=== PATIENT | female | born 1970 | race Caucasian/White ===

== ENCOUNTER → 2016-11-16 | Outpatient (CLI) | payer BC ==
--- NOTE | 2016-11-16 16:10 | Diagnostic Imaging Report ---
INDICATION: Low back pain. EXAMINATION: Lumbar spine. FINDINGS: AP and lateral views of the lumbar spine show normal vertebral body height and alignment. There is disc space narrowing at L4-5. The disc spaces are well-maintained. There is slight scoliotic curvature of the lumbar spine, convex to the left. IMPRESSION: Scoliosis. Degenerative disc changes at L4-5. Nothing acute. Dictated by: Dictated on workstation # [id number]
--- NOTE | 2016-11-16 16:11 | Diagnostic Imaging Report ---
INDICATION: Back pain after a fall. FINDINGS: AP and lateral views of the thoracic spine show normal vertebral body height and alignment. The intervertebral disc spaces are well maintained. There is no fracture seen. IMPRESSION: Slight scoliotic curvature of the thoracic spine, convex to the right. No acute abnormality is seen. Dictated by: Dictated on workstation # [id number]
== END ==
LOC: RAD 14:32
PROVIDERS: ATTEND Family Medicine
DX: M41.24 Other idiopathic scoliosis, thoracic region (principal); M51.34 Other intervertebral disc degeneration, thoracic region
CPT/HCPCS: 72072; 72100

== ENCOUNTER → 2017-10-30 | Outpatient (CLI) | payer BC ==
[~2017-10-30] MED LIST: ACHD5005 PO; CATHETER FLUSH 10 ML SYR IV PRN; DOCU-143 PO; IBUP-1780 PO; MONT10TA21 PO
--- NOTE | 2017-10-30 16:12 | Diagnostic Imaging Report ---
INDICATION: Right upper quadrant abdominal pain. TECHNIQUE: The patient was administered 4.8 mCi of technetium 99m Choletec intravenously and imaging over the abdomen was performed. After 60 minutes, the patient ingested one can of Ensure and the gallbladder ejection fraction was calculated. FINDINGS: There is homogeneous uptake of activity by the liver. Prompt excretion of activity into the common duct and gallbladder is seen. There is normal passage of activity into the small bowel. There is a small amount of activity in the left upper quadrant, likely within the stomach, suggestive of mild reflux. The gallbladder ejection fraction is abnormally low at 9%. Normal values are 35% or greater. IMPRESSION: 1. No evidence of cystic duct or common bile duct obstruction. 2. Mild reflux. 3. Low gallbladder ejection fraction of 9%. Dictated by: Dictated on workstation # [id number]
== END ==
LOC: CARD 09:55
PROVIDERS: ATTEND Nurse Practitioner Family
DX: R10.11 Right upper quadrant pain (principal); K82.8 Other specified diseases of gallbladder
CPT/HCPCS: 78227

== ENCOUNTER 2017-11-01 05:34 | Outpatient (CLI) | payer BC ==
[~2017-11-01] VITALS: Ht 157.5 cm; Wt 129.7 kg
[2017-11-01] MEDS ORDERED: IBUP-1780 PO (09:42)
[2017-11-01] MEDS ORDERED: MONT10TA21 PO (09:42)
[2017-11-02] MEDS ORDERED: ACHD5005 PO (12:34)
[2017-11-02] MEDS ORDERED: DOCU-143 PO (12:34)
== END 2017-11-01 10:07 | disposition home or self-care (01) ==
LOC: PREOP 05:34
PROVIDERS: ATTEND Surgery
DX: Z01.818 Encounter for other preprocedural examination (principal)

== ENCOUNTER 2017-11-02 09:33 | Day surgery (SDC) | payer BC ==
[~2017-11-02] VITALS: Ht 157.5 cm; Wt 129.7 kg
[~2017-11-02 09:33] MED LIST changes: -ACHD5005 PO; -CATHETER FLUSH 10 ML SYR IV PRN; -DOCU-143 PO
[2017-11-02] MEDS ORDERED: LACTATED RINGERS 1,000 ML IV PRN ×2 (09:43→12:07)
[2017-11-02 09:45] VITALS: BP 135/73
[2017-11-02] MEDS ORDERED: CLINDAMYCIN 600 MG/50 ML IVPB 50 ML IV ONE (09:45)
[2017-11-02] MEDS ORDERED: FAMOTIDINE 20MG/2ML IV (PEPCID) IV ONE (10:00)
[2017-11-02] MEDS ORDERED: SCOPOLAMINE 1.5 MG (TRANSDERM-SCOP) PATCH TOP ONE (10:00)
[2017-11-02] MEDS ORDERED: ONDANSETRON 4 MG/2 ML (SDV) Z0FRAN IV ONE (10:00)
[2017-11-02 10:25] LABS: BASOPHILS % (AUTO) 0 % (0-10); EOSINOPHILS # (AUTO) 0.1 10^3/uL (0.0-0.3); EOSINOPHILS % (AUTO) 1 % (0-10); HEMATOCRIT 41 % (35-52); LYMPHOCYTES % (AUTO) 15 % (12-44); MEAN CORPUSCULAR HEMOGLOBIN 30 PG (25-34); MEAN CORPUSCULAR HGB CONC 34 G/DL (32-36); MEAN CORPUSCULAR VOLUME 87 FL (80-99); MEAN PLATELET VOLUME 12.1 FL (7.4-10.4); MONOCYTES # (AUTO) 0.5 X 10^3 (0.0-1.0); MONOCYTES % (AUTO) 8 % (0-12); NEUTROPHILS # (AUTO) 5.1 X 10^3 (1.8-7.8); NEUTROPHILS % (AUTO) 75 % (42-75); PLATELET COUNT 237 10^3/uL (130-400); RED BLOOD COUNT 4.68 10^6/uL (4.35-5.85); RED CELL DISTRIBUTION WIDTH 14.8 % (10.0-14.5); WHITE BLOOD COUNT 6.8 10^3/uL (4.3-11.0)
--- NOTE | 2017-11-02 10:34 | Progress Note-Pre Operative ---
Pre-Operative Progress Note H&P Reviewed The H&P was reviewed, patient examined and no changes noted. Date Seen by Provider: Nov 02, 2017 Time Seen by Provider: 10:33 Date H&P Reviewed: Nov 02, 2017 Time H&P Reviewed: 10:33 Pre-Operative Diagnosis: ruq abdominal pain, biliary dyskinesia ALBERT STONE DO Nov 02, 2017 10:34
[2017-11-02] MEDS ORDERED: BUPIVACAINE 0.5% 30 ML (SENSORCAINE) VIAL ONE (10:41)
[2017-11-02] MEDS ORDERED: LIDOCAINE PF 2% 5 ML (XYLOCAINE) VIAL ONE (10:42)
[2017-11-02] MEDS ORDERED: ROCURONIUM 10 MG/ML 5 ML SYRINGE IV ONE (10:42)
[2017-11-02] MEDS ORDERED: LIDOCAINE 1% INJ 20 ML 20 ML VIAL ONE (10:42)
[2017-11-02] MEDS ORDERED: ONDANSETRON 4 MG/2 ML (SDV) Z0FRAN ONE ×2 (10:42→13:03)
[2017-11-02] MEDS ORDERED: proPOfol 200 MG/20 ML (DIPRIVAN) VIAL IV ONE (10:42)
[2017-11-02] MEDS ORDERED: DEXAMETHASONE 10 MG/ML (DECADRON) 1 ML VIAL ONE (10:43)
[2017-11-02] MEDS ORDERED: MIDAZOLAM 2 MG/2 ML (VERSED) VIAL ONE (10:43)
[2017-11-02] MEDS ORDERED: fentaNYL INJECTION 100 MCG/2 ML AMP ONE (10:43)
[2017-11-02] MEDS ORDERED: SEVOFLURANE (ULTANE) 15 ML INHAL SOLN ONE (10:47)
--- NOTE | 2017-11-02 12:33 | Progress Note-Post Operative ---
Post-Operative Progess Note Surgeon (s)/Nursing Informatics Specialist (s) Surgeon ALBERT STONE DO Nursing Informatics Specialist: Dr. Rodrigues Pre-Operative Diagnosis ruq abdominal pain, biliary dyskinesia Post-Operative Diagnosis same Procedure & Operative Findings Date of Procedure 11/02/17 Procedure Performed/Findings lap pasha c ioc Anesthesia Type gen Estimated Blood Loss Estimated blood loss (mL): min Specimens/Packing Specimens Removed gallbladder ALBERT STONE DO Nov 02, 2017 12:33
[2017-11-02] MEDS ORDERED: ACHD5005 PO (12:34)
[2017-11-02] MEDS ORDERED: DOCU-143 PO (12:34)
--- NOTE | 2017-11-02 12:36 | Discharge Inst-Simple/Standard ---
Discharge Inst-Standard Discharge Medications New, Converted or Re-Newed RX: RX on Chart Patient Instructions/Follow Up Plan of Care/Instructions/FU: 2-3 weeks Maggie Activity as Tolerated: No Discharge Diet: Regular Diet Other Inst to Patient Follow up Appt: Make appointment for 2 weeks. Instructions: No lifting greater than 10 pounds. No strenuous activity. May shower in 24 hours, no tub bath or soaking. Use incentive spirometer at home as directed. No Smoking Skin/Wound Care: May remove bandages. You need to leave the white strips over incision on they will fall off on their own. Symptoms to Report: Appetite Changes, Extremity Discoloration, Numbness/Tingling, Swelling Increased , Bleeding Excessive, Eyesight Changes, Pain Increased, Urine Color Change, Constipation(Persistent), Fever over 101 degree F, Pain/Pressure in chest, Urinating Difficulty, Cough Up/Vomit Blood, Heart Beat Irreg/Pounding, Pain/ Pressure in jaw, Vaginal Bleeding Increase, Cramps in feet or legs, Lightheadedness, Pain/Pressure in shoulder, Diarrhea(Persistent), Memory Changes Suddenly, Questions/Concerns, Weight gain consecutive days, Dizziness/ Fainting, Nausea/Vomiting, Shortness of Breath, Weight gain over 2 pounds. If eyes or skin turn yellow notify physician. If questions or concerns contact your physician Or seek help at emergency department. ALBERT STONE DO Nov 02, 2017 12:36
[2017-11-02] MEDS ORDERED: fentaNYL INJECTION 100 MCG/2 ML AMP IVP PRN (13:00)
[2017-11-02] MEDS ORDERED: morphine INJ 10 MG/ML 1ML (SYR OR VIAL) ONE (13:03)
[2017-11-02] MEDS: morphine INJ 10 MG/ML 1ML (SYR OR VIAL) IVP PRN ×2 (13:05→13:10)
[2017-11-02] MEDS ORDERED: ONDANSETRON 4 MG/2 ML (SDV) Z0FRAN IVP PRN (13:15)
[2017-11-02 13:40] VITALS: BP 137/78
--- NOTE | 2017-11-02 14:09 | Anesthesia-General Post-Op ---
General Patient Condition Mental Status/LOC: Same as Preop Cardiovascular: Satisfactory Nausea/Vomiting: Absent Respiratory: Satisfactory Pain: Controlled Complications: Absent Post Op Complications Complications None Follow Up Care/Instructions Patient Instructions None needed. Anesthesia/Patient Condition Patient Condition Patient is doing well, no complaints, stable vital signs, no apparent adverse anesthesia problems. No complications reported per nursing. D/C home per [facility] Criteria: Yes YVONNE STEWART CRNA Nov 02, 2017 14:09
[2017-11-02 14:10] VITALS: BP 122/70
[2017-11-02 14:40] VITALS: BP 139/73
[2017-11-02 15:00] VITALS: BP 139/73
--- NOTE | 2017-11-02 19:26 | Diagnostic Imaging Report ---
INDICATION: Abnormal gallbladder ejection fraction. Patient is undergoing cholecystectomy. EXAMINATION: Fluoroscopy was provided in the OR during performance of an intraoperative cholangiogram and cholecystectomy. FLUOROSCOPY TIME: Total of 7 seconds of fluoroscopy was utilized. FINDINGS: Images demonstrate contrast being injected via the cystic duct remnant. Intrahepatic and extrahepatic bile ducts are normal caliber. No filling defects are seen to suggest retained stone. Contrast flows into the duodenum. IMPRESSION: Fluoroscopy for intraoperative cholangiogram. Dictated by: Dictated on workstation # [id number]
--- NOTE | 2017-11-02 22:19 | OPERATIVE REPORT ---
DATE OF SERVICE: 11/02/2017 PREOPERATIVE DIAGNOSIS: Biliary dyskinesia. POSTOPERATIVE DIAGNOSIS: Biliary dyskinesia. PROCEDURE: Laparoscopic cholecystectomy with intraoperative cholangiogram. SURGEON: Conrado Serrano DO NUT SIFTER: Aaron Rodrigues DO, assisted in retraction, dissection and closure. ANESTHESIA: General. ESTIMATED BLOOD LOSS: Minimal. COMPLICATIONS: None. INDICATIONS: The patient is a 47-year-old female who had ejection fraction approximately 9% and symptoms consistent with biliary dyskinesia. She understands risks and benefits of the procedure and wished to proceed with procedure. Consent was signed on the chart. DESCRIPTION OF PROCEDURE: The patient was taken to the operating suite. She was prepped and draped in sterile fashion. Surgical pause was performed. Local anesthetic was infiltrated just above the umbilicus. An 11 blade scalpel was used to make an incision and cautery and was taken down to the fascia, which was scored, elevated and the abdomen was then entered. A 0 Vicryl was placed in a suyzvp-jj-fappw fashion for closure at the end of the case. A balloon trocar was inserted in the abdomen and pneumoperitoneum was achieved. Under direct visualization of the laparoscope, a 5 mm trocar was placed in subxiphoid region and two 5 mm trocars were placed in the right upper quadrant. Omentum was adhered up to the gallbladder. This was then taken down. The cystic duct and cystic artery were then dissected out. Clips were placed on the proximal and distal portion of the cystic artery. A clip was placed on the distal portion of the cystic duct. The duct was then partially transected. Arrow catheter was inserted into the duct and cholangiogram was performed. There were no filling defects. Contrast made its way into the duodenum. The catheter was then removed. Clips were placed on the proximal portion of the cystic duct and the duct and artery were then completely transected. Hook cautery used to dissect the gallbladder from the gallbladder fossa achieving hemostasis. Once removed, it was placed in an Endobag and removed through the 12 mm trocar site. The abdomen was reinspected, irrigated and suctioned again noting hemostasis. The 0 Vicryl placed in a nodrzm-jh-hvxka fashion previously was then closed closing the 12 mm fascial defect. The trocars were removed. The skin was then closed using 4-0 Monocryl in a subcuticular fashion. The area was then washed and dried and Skin Affix was placed over the incisions. The patient tolerated the procedure well without any complications. She was taken to the recovery room in stable condition. Job ID: [id number] DocumentID: [id number] Dictated Date: 11/02/2017 14:08:58 Mold Shaker Date: 11/02/2017 22:18:38 Dictated By: DO ROSITA NAIK
== END 2017-11-02 15:10 | disposition home or self-care (01) ==
LOC: SDC 09:33
PROVIDERS: ATTEND Surgery
DX: K81.1 Chronic cholecystitis (principal); E66.01 Morbid (severe) obesity due to excess calories; Z68.43 Body mass index [BMI] 50.0-59.9, adult
CPT/HCPCS: 36415; 84703; 85025; 87081; 94664

== ENCOUNTER → 2018-01-24 | Outpatient (CLI) | payer BC ==
[~2018-01-24] MED LIST changes: +ACHD5005 PO; +DOCU-143 PO
== END ==
LOC: RAD 15:07
PROVIDERS: ATTEND Physician Assistant
DX: G89.29 Other chronic pain (principal); M54.5 Low back pain; M54.6 Pain in thoracic spine; Z53.8 Procedure and treatment not carried out for other reasons

== ENCOUNTER → 2018-05-18 | Outpatient (CLI) | payer BC, OTHER ==
--- NOTE | 2018-05-18 17:26 | Diagnostic Imaging Report ---
INDICATION: Routine screening. COMPARISON: Prior exam from 11/09/2015 and 02/06/2012. FINDINGS: 2D and 3D bilateral screening mammography was performed with CAD. The current study was also evaluated with a Computer Aided Detection (CAD) system. FINDINGS: Both breasts remain heterogeneously dense, limiting the sensitivity of mammography. The parenchymal pattern is stable. No mass or malignant appearing microcalcifications are seen. The axillae are unremarkable. IMPRESSION: No mammographic features suspicious for malignancy are identified. ACR BI-RADS Category 1: Negative. Result letter will be mailed to the patient. Note: At least 10% of breast cancer is not imaged by mammography. Dictated on workstation # [id number]
== END ==
LOC: RAD 08:44
PROVIDERS: ATTEND Obstetrics & Gynecology
DX: Z12.31 Encounter for screening mammogram for malignant neoplasm of breast (principal)
CPT/HCPCS: 77067

== ENCOUNTER 2018-08-13 09:30 | Outpatient (CLI) | payer OTHER ==
[~2018-08-13] VITALS: Ht 157.5 cm; Wt 133.4 kg
== END 2018-08-13 10:21 | disposition home or self-care (01) ==
LOC: PREOP 09:30
PROVIDERS: ATTEND Surgery
DX: Z01.818 Encounter for other preprocedural examination (principal)

== ENCOUNTER 2018-08-14 12:50 | Day surgery (SDC) | payer OTHER ==
[~2018-08-14] VITALS: Ht 157.5 cm; Wt 133.4 kg
[2018-08-14] MEDS ORDERED: LACTATED RINGERS 1,000 ML IV ONE (12:52)
--- OUTSIDE RECORDS SUMMARY | 2018-08-14 12:54 | XMS REPORT | Continuity of Care Document ---
Author Organization Unknown Address Unknown Allergies Active Description Code Type Severity Reaction Onset Reported/Identified Relationship to Patient Clinical Status Yes MONISTAT 7 CREAM, APPL, WIPES MILD DERMATOLOGICAL - ALESSANDRO Yes PENICILLINS UNKNOWN UNKNOWN Yes TRAMADOL UNKNOWN GI PROBLEMS - NAUSEA Yes Penicillins [id number] Drug Allergy Unknown N/A 10/30/2017 Yes Penicillins [id number] Drug Allergy Mild RASH 11/01/2017 Yes miconazole [id number] Drug Allergy Unknown N/A 08/13/2018 Yes skin cleanser combination no.17 [id number] Drug Allergy Unknown N/A 2018 Yes tramadol [id number] Drug Allergy Unknown N/A 08/13/2018 Medications There is no data. Problems Date Dx Coded Attending Type Code Diagnosis Diagnosed By 08/19/2015 Ot V76.12 OTH SCREEN MAMMO-MALIGN NEOPLASM OF MICHI 08/19/2015 Ot V76.12 OTH SCREEN MAMMO-MALIGN NEOPLASM OF MICHI 08/21/2015 ABRAM PHILLIPS MD Ot M25.571 PAIN IN RIGHT ANKLE AND JOINTS OF RIGHT 09/17/2015 ABRAM PHILLIPS MD Ot M25.571 PAIN IN RIGHT ANKLE AND JOINTS OF RIGHT 11/10/2015 BARBER NAVARRO MD Ot Z12.31 ENCNTR SCREEN MAMMOGRAM FOR MALIGNANT NE 11/25/2015 BARBER NAVARRO MD Ot Z12.31 ENCNTR SCREEN MAMMOGRAM FOR MALIGNANT NE 11/16/2016 Ot V76.12 OTH SCREEN MAMMO-MALIGN NEOPLASM OF MICHI 11/16/2016 ABRAM PHILLIPS MD Ot M25.571 PAIN IN RIGHT ANKLE AND JOINTS OF RIGHT 11/16/2016 BARBER NAVARRO MD Ot Z12.31 ENCNTR SCREEN MAMMOGRAM FOR MALIGNANT NE 11/17/2016 ABRAM PHILLIPS MD Ot M41.24 OTHER IDIOPATHIC SCOLIOSIS, THORACIC REG 11/17/2016 JACQUELINE DOMINGUEZ, ABRAM L Ot M51.34 OTHER INTERVERTEBRAL DISC DEGENERATION, 11/30/2016 ABRAM PHILLIPS MD Ot M41.24 OTHER IDIOPATHIC SCOLIOSIS, THORACIC REG 11/30/2016 ABRAM PHILLIPS MD Ot M51.34 OTHER INTERVERTEBRAL DISC DEGENERATION, 12/30/2016 ABRAM PHILLIPS MD Ot M41.24 OTHER IDIOPATHIC SCOLIOSIS, THORACIC REG 12/30/2016 ABRAM PHILLIPS MD Ot M51.34 OTHER INTERVERTEBRAL DISC DEGENERATION, 12/30/2016 ABRAM PHILLIPS MD Ot M41.24 OTHER IDIOPATHIC SCOLIOSIS, THORACIC REG 12/30/2016 ABRAM PHILLIPS MD Ot M51.34 OTHER INTERVERTEBRAL DISC DEGENERATION, 12/30/2016 Ot V76.12 OTH SCREEN MAMMO-MALIGN NEOPLASM OF MICHI 12/30/2016 ABRAM PHILLIPS MD Ot M25.571 PAIN IN RIGHT ANKLE AND JOINTS OF RIGHT 12/30/2016 RAMON DOMINGUEZ, BABRER N Ot Z12.31 ENCNTR SCREEN MAMMOGRAM FOR MALIGNANT NE 12/30/2016 ABRAM PHILLIPS MD L Ot M41.24 OTHER IDIOPATHIC SCOLIOSIS, THORACIC REG 12/30/2016 ABRAM PHILLIPS MD Ot M51.34 OTHER INTERVERTEBRAL DISC DEGENERATION, 01/05/2017 ABRAM PHILLIPS MD L Ot M41.24 OTHER IDIOPATHIC SCOLIOSIS, THORACIC REG 01/05/2017 ABRAM PHILLIPS MD Ot M51.34 OTHER INTERVERTEBRAL DISC DEGENERATION, 02/16/2017 BARAM PHILLIPS MD Ot M41.24 OTHER IDIOPATHIC SCOLIOSIS, THORACIC REG 02/16/2017 ABRAM PHILLIPS MD Ot M51.34 OTHER INTERVERTEBRAL DISC DEGENERATION, 07/06/2017 ABRAM PHILLIPS V70.0 ROUTINE GENERAL MEDICAL EXAMINATION AT A HEALTH CARE FACILITY 07/06/2017 ABRAM PHILLIPS Z00.01 ENCOUNTER FOR GENERAL ADULT MEDICAL EXAMINATION WITH ABNORMAL FINDINGS 07/06/2017 ABRAM PHILLIPS V70.0 ROUTINE GENERAL MEDICAL EXAMINATION AT A HEALTH CARE FACILITY 07/06/2017 ABRAM PHILLIPS Z00.01 ENCOUNTER FOR GENERAL ADULT MEDICAL EXAMINATION WITH ABNORMAL FINDINGS 07/06/2017 ABRAM PHILLIPS V70.0 ROUTINE GENERAL MEDICAL EXAMINATION AT A HEALTH CARE FACILITY 07/06/2017 ABRAM PHILLIPS Z00.01 ENCOUNTER FOR GENERAL ADULT MEDICAL EXAMINATION WITH ABNORMAL FINDINGS 10/13/2017 ColindresChristine W 789.09 ABDOMINAL PAIN, OTHER SPECIFIED SITE 10/13/2017 Christine Colindres W R10.10 UPPER ABDOMINAL PAIN, UNSPECIFIED 10/16/2017 Christine Colindres W 789.09 ABDOMINAL PAIN, OTHER SPECIFIED SITE 10/16/2017 Christine Colindres W R10.10 UPPER ABDOMINAL PAIN, UNSPECIFIED 10/16/2017 Christine Colindres W 789.09 ABDOMINAL PAIN, OTHER SPECIFIED SITE 10/16/2017 Christine Colindres W R10.10 UPPER ABDOMINAL PAIN, UNSPECIFIED 11/01/2017 STONE DO ALBERT D Ot Z01.818 ENCOUNTER FOR OTHER PREPROCEDURAL EXAMIN 11/01/2017 ELISEO COLINDRES LIQUID COMPOUNDER Ot K82.8 OTHER SPECIFIED DISEASES OF GALLBLADDER 11/01/2017 ELISEO COLINDRES LIQUID COMPOUNDER Ot R10.11 RIGHT UPPER QUADRANT PAIN 11/01/2017 STONE DO, ALBERT D Ot Z01.818 ENCOUNTER FOR OTHER PREPROCEDURAL EXAMIN 11/02/2017 STONE DO, ALBERT D Ot E66.01 MORBID (SEVERE) OBESITY DUE TO EXCESS CA 11/02/2017 STONE DO, ABLERT D Ot K81.1 CHRONIC CHOLECYSTITIS 11/02/2017 STONE DO, ALBERT D Ot Z68.43 BODY MASS INDEX (BMI) 50-59.9 , ADULT 11/08/2017 STONE DO, ALBERT D Ot E66.01 MORBID (SEVERE) OBESITY DUE TO EXCESS CA 11/08/2017 STONE DO, ALBERT D Ot K81.1 CHRONIC CHOLECYSTITIS 11/08/2017 STONE DO, ALBERT D Ot Z68.43 BODY MASS INDEX (BMI) 50-59.9 , ADULT 11/15/2017 ELISEO COLINDRES LIQUID COMPOUNDER Ot K82.8 OTHER SPECIFIED DISEASES OF GALLBLADDER 11/15/2017 ELISEO COLINDRES LIQUID COMPOUNDER Ot R10.11 RIGHT UPPER QUADRANT PAIN 01/22/2018 JACQUELINE DOMINGUEZ, ABRAM Judge Ot M25.571 PAIN IN RIGHT ANKLE AND JOINTS OF RIGHT 01/22/2018 RAMON DOMINGUEZ, BARBER Silver Ot Z12.31 ENCNTR SCREEN MAMMOGRAM FOR MALIGNANT NE 01/22/2018 ABRAM PHILLIPS MD, Ot M41.24 OTHER IDIOPATHIC SCOLIOSIS, THORACIC REG 01/22/2018 JACQUELINE DOMINGUEZ, ABRAM Judge Ot M51.34 OTHER INTERVERTEBRAL DISC DEGENERATION, 01/22/2018 ELISEO COLINDRES LIQUID COMPOUNDER Ot K82.8 OTHER SPECIFIED DISEASES OF GALLBLADDER 01/22/2018 ELISEO COLINDRES LIQUID COMPOUNDER Ot R10.11 RIGHT UPPER QUADRANT PAIN 01/25/2018 VOGT DEBORAH PATINO Ot G89.29 OTHER CHRONIC PAIN 01/25/2018 VOGT DEBORAH PATINO Ot M54.5 LOW BACK PAIN 01/25/2018 VOGT DEBORAH PATINO L Ot M54.6 PAIN IN THORACIC SPINE 01/25/2018 VOGT DEBORAH PATINO Ot Z53.8 PROCEDURE AND TREATMENT NOT CARRIED OUT 01/25/2018 VOGT DEBORAH PATINO Ot G89.29 OTHER CHRONIC PAIN 01/25/2018 VOGT DEBORAH PATINO Ot M54.5 LOW BACK PAIN 01/25/2018 VOGT DEBORAH PATINO Ot M54.6 PAIN IN THORACIC SPINE 01/25/2018 VOGT DEBORAH PATINO Ot Z53.8 PROCEDURE AND TREATMENT NOT CARRIED OUT 05/10/2018 ABRAM PHILLIPS 626.0 ABSENCE OF MENSTRUATION 05/10/2018 ABRAM PHILLIPS 782.62 FLUSHING 05/10/2018 ABRAM PHILLIPS 783.1 ABNORMAL WEIGHT GAIN 05/10/2018 ABRAM PHILLIPS N91.1 SECONDARY AMENORRHEA 05/10/2018 ABRAM PHILLIPS R23.2 FLUSHING 05/10/2018 ABRAM PHILLIPS R63.5 ABNORMAL WEIGHT GAIN 05/10/2018 ABRAM PHILLIPS 626.0 ABSENCE OF MENSTRUATION 05/10/2018 ABRAM PHILLIPS 782.62 FLUSHING 05/10/2018 ABRAM PHILLIPS 783.1 ABNORMAL WEIGHT GAIN 05/10/2018 ABRAM PHILLIPS N91.1 SECONDARY AMENORRHEA 05/10/2018 ABRAM PHILLIPS R23.2 FLUSHING 05/10/2018 ABRAM PHILLIPS R63.5 ABNORMAL WEIGHT GAIN 05/17/2018 JACQUELINE DOMINGUEZ, ABRAM Judge Ot M25.571 PAIN IN RIGHT ANKLE AND JOINTS OF RIGHT 05/17/2018 RAMON DOMINGUEZ, BARBER Silver Ot Z12.31 ENCNTR SCREEN MAMMOGRAM FOR MALIGNANT NE 05/17/2018 ABRAM PHILLIPS MD Ot M41.24 OTHER IDIOPATHIC SCOLIOSIS, THORACIC REG 05/17/2018 ABRAM PHILLIPS MD Ot M51.34 OTHER INTERVERTEBRAL DISC DEGENERATION, 05/17/2018 ELISEO COLINDRES LIQUID COMPOUNDER Ot K82.8 OTHER SPECIFIED DISEASES OF GALLBLADDER 05/17/2018 ELISEO COLINDRES LIQUID COMPOUNDER Ot R10.11 RIGHT UPPER QUADRANT PAIN 05/17/2018 VOGT DEBORAH PATINO Ot G89.29 OTHER CHRONIC PAIN 05/17/2018 VOGT DEBORAH PATINO Ot M54.5 LOW BACK PAIN 05/17/2018 VOGT DEBORAH PATINO Ot M54.6 PAIN IN THORACIC SPINE 05/17/2018 VOGT DEBORAH PATINO Ot Z53.8 PROCEDURE AND TREATMENT NOT CARRIED OUT 05/18/2018 ABRAM PHILLIPS MD Ot M25.571 PAIN IN RIGHT ANKLE AND JOINTS OF RIGHT 05/18/2018 BARBER NAVARRO MD Ot Z12.31 ENCNTR SCREEN MAMMOGRAM FOR MALIGNANT NE 05/18/2018 ABRAM PHILLIPS MD Ot M41.24 OTHER IDIOPATHIC SCOLIOSIS, THORACIC REG 05/18/2018 ABRAM PHILLIPS MD Ot M51.34 OTHER INTERVERTEBRAL DISC DEGENERATION, 05/18/2018 ELISEO COLINDRES LIQUID COMPOUNDER Ot K82.8 OTHER SPECIFIED DISEASES OF GALLBLADDER 05/18/2018 ELISEO COLINDRES LIQUID COMPOUNDER Ot R10.11 RIGHT UPPER QUADRANT PAIN 05/18/2018 DEBORAH ARREDONDO Ot G89.29 OTHER CHRONIC PAIN 05/18/2018 VODEBORAH COX Ot M54.5 LOW BACK PAIN 05/18/2018 DEBORAH ARREDONDO Ot M54.6 PAIN IN THORACIC SPINE 05/18/2018 DEBORAH ARREDONDO Ot Z53.8 PROCEDURE AND TREATMENT NOT CARRIED OUT 08/08/2018 ALBERT STONE DO Ot Z01.818 ENCOUNTER FOR OTHER PREPROCEDURAL EXAMIN 08/10/2018 ABRAM PHILLIPS MD Ot M25.571 PAIN IN RIGHT ANKLE AND JOINTS OF RIGHT 08/10/2018 BARBER NAVARRO MD Ot Z12.31 ENCNTR SCREEN MAMMOGRAM FOR MALIGNANT NE 08/10/2018 ABRAM PHILLIPS MD Ot M41.24 OTHER IDIOPATHIC SCOLIOSIS, THORACIC REG 08/10/2018 JACQUELINE DOMINGUEZ, ABRAM Judge Ot M51.34 OTHER INTERVERTEBRAL DISC DEGENERATION, 08/10/2018 ELISEO COLINDRES Ot K82.8 OTHER SPECIFIED DISEASES OF GALLBLADDER 08/10/2018 ELISEO COLINDRES Ot R10.11 RIGHT UPPER QUADRANT PAIN 08/10/2018 DEBORAH ARREDONDO Ot G89.29 OTHER CHRONIC PAIN 08/10/2018 DEBORAH ARREDONDO Ot M54.5 LOW BACK PAIN 08/10/2018 DEBORAH ARREDONDO Ot M54.6 PAIN IN THORACIC SPINE 08/10/2018 DEBORAH ARREDONDO Ot Z53.8 PROCEDURE AND TREATMENT NOT CARRIED OUT 08/10/2018 MARQUISE TALBOT DO Ot Z12.31 ENCNTR SCREEN MAMMOGRAM FOR MALIGNANT NE 08/10/2018 ALBERT STONE DO Ot Z01.818 ENCOUNTER FOR OTHER PREPROCEDURAL EXAMIN 08/13/2018 ALBERT STONE DO Ot Z01.818 ENCOUNTER FOR OTHER PREPROCEDURAL EXAMIN Procedures There is no data. Results Test Result Range Urine Culture - 03/31/17 14:31 PRELIM CULTURE RESULTS >100,000 Gram Negative STEVE / ID to Follow MEDIA PLATED Setup at 14:45 on 03/31/2017 CULTURE SOURCE void Sensi - 03/31/17 14:31 FINAL CULTURE RESULTS Escherichia coli (Isolate 1) Ampicillin/Sulbactam <=8/4 Ampicillin <=8 Amoxicillin/K Clavulanate <=8/4 Ceftriaxone <=8 Ciprofloxacin <=1 Nitrofurantoin <=32 Gentamicin <=4 Levofloxacin <=2 Trimethoprim/ Sulfamethoxazole <=2/38 Tetracycline <=4 Amikacin <=16 Aztreonam <=8 Ceftazidime <=1 Ceftazidime/K Clavulanate <=0.25 Cephalothin <=8 Cefotaxime <=2 Cefotaxime/K Clavulanate <=0.5 Cefoxitin <=8 Cefazolin <=8 Cefepime <=8 Cefuroxime <=4 Ertapenem <=1 Imipenem <=4 Meropenem <=4 Piperacillin/Tazobactam <=16 Piperacillin <=16 Tigecycline <=2 Tobramycin <=4 Lipid Panel - 07/06/17 14:27 C/HDL 3.3 3.7-6.7 Cholesterol 147 mg/dL 100-240 HDL 45 mg/dL 30-85 LDL-Calculated 69 mg/dL 0-100 Trig 166 mg/dL 35-160 VLDL 33 mg/dL 0-42 Nicotine and Metabolite, Quant - 07/06/17 14:27 NICOTINE NONE DETECTED NG/ML COTININE NONE DETECTED NG/ML CBC with Auto Diff - 10/13/17 10:30 Baso% 0.20 % 0.00-2.50 Eos 0.1 K/uL 0.0-0.7 Eos% 1.2 % 0.0-7.0 Hct 43.3 % 36.0-46.0 Hgb 14.1 g/dL 13.0-15.0 Lym 1.30 K/uL 0.60-3.40 Lym% 15.4 % 10.0-50.0 MCH 29.1 pg 27.0-31.0 MCHC 32.6 g/dL 32.0-36.0 MCV 89.5 fL 80.0-97.0 [place]% 6.8 % 0.0-12.0 MPV 12.9 fL 7.4-10.0 Cecilia% 76.4 % 37.0-80.0 Plt 265 K/uL 150-400 RBC 4.84 M/uL 3.60-5.00 RDW 14.5 % 11.6-14.8 WBC 8.43 K/uL 5.00-10.00 Cecilia 6.44 K/uL 2.00-6.90 [place] 0.6 K/uL 0.0-0.9 Baso 0.0 K/uL 0.0-0.2 Urine beta human chorionic gonadotropin (hCG) measurement - 11/02/17 09:40 Urine beta human chorionic gonadotropin (hCG) measurement NEGATIVE NEGATIVE Methicillin resistant Staphylococcus aureus (MRSA) screening culture - 09:50 Methicillin resistant Staphylococcus aureus (MRSA) screening culture NEG NRG Complete blood count (CBC) with automated white blood cell (WBC) differential - 11/02/17 10:15 Blood leukocytes automated count (number/volume) 6.8 10*3/uL 4.3-11.0 Blood erythrocytes automated count (number/volume) 4.68 10*6/uL 4.35-5.85 Venous blood hemoglobin measurement (mass/volume) 14.0 g/dL 11.5-16.0 Blood hematocrit (volume fraction) 41 % 35-52 Automated erythrocyte mean corpuscular volume 87 [foz_us] 80-99 Automated erythrocyte mean corpuscular hemoglobin (mass per erythrocyte) 30 pg 25-34 Automated erythrocyte mean corpuscular hemoglobin concentration measurement ( mass/volume) 34 g/dL 32-36 Automated erythrocyte distribution width ratio 14.8 % 10.0-14.5 Automated blood platelet count (count/volume) 237 10*3/uL 130-400 Automated blood platelet mean volume measurement 12.1 [foz_us] 7.4-10.4 Automated blood neutrophils/100 leukocytes 75 % 42-75 Automated blood lymphocytes/100 leukocytes 15 % 12-44 Blood monocytes/100 leukocytes 8 % 0-12 Automated blood eosinophils/100 leukocytes 1 % 0-10 Automated blood basophils/100 leukocytes 0 % 0-10 Blood neutrophils automated count (number/volume) 5.1 10*3 1.8-7.8 Blood lymphocytes automated count (number/volume) 1.0 10*3 1.0-4.0 Blood monocytes automated count (number/volume) 0.5 10*3 0.0-1.0 Automated eosinophil count 0.1 10*3/uL 0.0-0.3 Automated blood basophil count (count/volume) 0.0 10*3/uL 0.0-0.1 FSH and LH - 05/10/18 17:50 LH 27.8 mIU/mL FSH 26.3 mIU/mL Estradiol - 05/10/18 17:50 Estradiol 144.0 pg/mL Thyroid Stimulating Hormone - 05/10/18 17:50 TSH 1.17 mIU/mL 0.32-5.00 Estradiol - 05/10/18 17:50 Estradiol 144.0 PG/ML Encounters ACCT No. Visit Date/Time Discharge Status Pt. Type Provider Facility Loc./Unit Complaint [id number] 08/13/2018 09:30:00 08/13/2018 10:21:00 DIS Outpatient ALBERT STONE DO [facility] PREOP COLONOSCOPY [id number] 05/18/2018 08:44:00 05/18/2018 23:59:59 CLS Outpatient MARQUISE TALBOT DO [facility] RAD SCREENING [id number] 01/24/2018 15:07:00 01/24/2018 23:59:59 CLS Outpatient DEBORAH ARREDONDO [facility] RAD BACK PAIN [id number] 11/02/2017 09:33:00 11/02/2017 15:10:00 DIS Outpatient ALBERT STONE DO [facility] SDC BILIARY DYSKINESIA [id number] 11/01/2017 05:34:00 11/01/2017 10:07:00 DIS Outpatient ALBERT STONE DO [facility] PREOP BILIARY DYSKINESIA [id number] 10/30/2017 09:55:00 10/30/2017 23:59:59 CLS Outpatient ELISEO COLINDRES [facility] CARD RUQ ABD PAIN,SLUDGE SEEN ON GB SONOGRAM [id number] 11/16/2016 14:32:00 11/16/2016 23:59:59 CLS Outpatient ABRAM PHILLIPS MD [facility] RAD LOWER THORACIC PAIN [id number] 11/09/2015 10:26:00 11/09/2015 23:59:59 CLS Outpatient BARBER NAVARRO MD [facility] RAD SCREENING [id number] 08/19/2015 16:23:00 08/19/2015 23:59:59 CLS Outpatient ABRAM PHILLIPS MD [facility] RAD R ANKLE/FOOT PAIN [id number] 08/14/2018 12:40:00 PEN Preadmit ALBERT STONE DO [facility] ENDO BLOOD IN STOOL [id number] 02/06/2012 15:18:00 Document Registration [id number] 12/20/2010 08:15:00 Document Registration [id number] 05/15/2018 01:07:00 Document Registration [id number] 05/10/2018 17:50:00 05/10/2018 23:59:00 DIS Outpatient ABRAM PHILLIPS [id number] 10/16/2017 09:52:00 10/16/2017 23:59:00 DIS Outpatient Christine Colindres [id number] 10/13/2017 10:58:00 10/13/2017 23:59:00 DIS Outpatient Christine Colindres [id number] 07/06/2017 14:26:00 07/06/2017 23:59:00 DIS Outpatient ABRAM PHILLIPS [id number] 03/31/2017 14:31:00 03/31/2017 23:59:00 DIS Outpatient Christine Colindres
[2018-08-14] MEDS ORDERED: LACTATED RINGERS 1,000 ML IV STA (12:56)
[2018-08-14 13:14] VITALS: BP 127/81
--- NOTE | 2018-08-14 13:24 | Progress Note-Pre Operative ---
Pre-Operative Progress Note H&P Reviewed The H&P was reviewed, patient examined and no changes noted. Date Seen by Provider: Aug 14, 2018 Time Seen by Provider: 13:24 Date H&P Reviewed: Aug 14, 2018 Time H&P Reviewed: 13:24 Pre-Operative Diagnosis: blood in stool ALBERT STONE DO Aug 14, 2018 13:24
[2018-08-14] MEDS ORDERED: PROPOFOL INJECTION 50 ML IV ONE (13:50)
[2018-08-14] MEDS ORDERED: MIDAZOLAM 2 MG/2 ML (VERSED) VIAL ONE (13:50)
--- NOTE | 2018-08-14 15:19 | Progress Note-Post Operative ---
Post-Operative Progess Note Surgeon (s)/Ada Accommodation Consultant (s) Surgeon ALBERT STONE DO Ada Accommodation Consultant: na Pre-Operative Diagnosis blood in stool Post-Operative Diagnosis healing fisure Procedure & Operative Findings Date of Procedure 08/14/18 Procedure Performed/Findings colonoscopy Anesthesia Type per telephone exchange operator Estimated Blood Loss Estimated blood loss (mL): none Specimens/Packing Specimens Removed na ALBERT STONE DO Aug 14, 2018 15:19
--- NOTE | 2018-08-14 15:20 | Discharge Inst-Simple/Standard ---
Discharge Inst-Standard Patient Instructions/Follow Up Plan of Care/Instructions/FU: 2 weeks Maggie Activity as Tolerated: Yes Discharge Diet: Regular Diet (high fiber) ALBERT STONE DO Aug 14, 2018 15:20
[2018-08-14 15:25] VITALS: BP 105/65
[2018-08-14 15:55] VITALS: BP 125/81
[2018-08-14 16:10] VITALS: BP 125/81
--- NOTE | 2018-08-14 18:55 | Anesthesia-General Post-Op ---
MAC Patient Condition Mental Status/LOC: Same as Preop Cardiovascular: Satisfactory Nausea/Vomiting: Absent Respiratory: Satisfactory Pain: Controlled Complications: Absent Post Op Complications Complications None Follow Up Care/Instructions Patient Instructions None needed. Anesthesiology Discharge Order Discharge Order Patient is doing well, no complaints, stable vital signs, no apparent adverse anesthesia problems. No complications reported per nursing. TAMIKO MOTLEY CRNA Aug 14, 2018 18:55
--- NOTE | 2018-08-14 21:19 | OPERATIVE REPORT ---
DATE OF SERVICE: 08/14/2018 PREOPERATIVE DIAGNOSIS: Blood in stool. POSTOPERATIVE DIAGNOSIS: Healing fissure. PROCEDURE: Colonoscopy. SURGEON: Albert Serrano DO ANESTHESIA: Per BUSINESS TRANSFORMATION ANALYST. ESTIMATED BLOOD LOSS: None. COMPLICATIONS: None. INDICATIONS: The patient is a 48-year-old female who has been having some blood in stool. She was found to have a small fissure. The patient was discussed risks and benefits of procedure to evaluate for other sources of bleeding. She understands and wished to proceed. Consent was signed on the chart. DESCRIPTION OF PROCEDURE: The patient was taken to the endoscopy suite, placed in left lateral recumbent position. Timeout was performed. Digital rectal exam was performed. A small healing anterior fissure was present. No other polyps, masses or ulcerations present. Scope was inserted into the rectum and advanced all the way to the cecum with minimal difficulty. Prep was adequate. Scope was then slowly retracted back. There were no polyps, mass or ulceration in the cecum, ascending, transverse, descending and sigmoid colon. Once in the rectum, scope was retroflexed noting no other pathology. Scope was returned to its normal position, slowly withdrawn until completely removed. The patient tolerated procedure well without complications. She was taken to recovery room in stable condition. RECOMMENDATIONS: The patient will continue current medical therapy. We will reevaluate in 2 weeks. The patient will need repeat colonoscopy in 10 years unless family history of colon cancer, which would then be 5 years. Any issues before that will be seen at that time. Job ID: [id number] DocumentID: [id number] Dictated Date: 08/14/2018 15:24:35 Instruments Sales Representative Date: 08/14/2018 21:18:13 Dictated By: ALBERT SERRANO DO
== END 2018-08-14 16:10 | disposition home or self-care (01) ==
LOC: ENDO 12:50
PROVIDERS: ATTEND Surgery
DX: K60.2 Anal fissure, unspecified (principal); E66.01 Morbid (severe) obesity due to excess calories; Z68.43 Body mass index [BMI] 50.0-59.9, adult; K21.9 Gastro-esophageal reflux disease without esophagitis; F41.9 Anxiety disorder, unspecified; J45.909 Unspecified asthma, uncomplicated; Z77.22 Contact with and (suspected) exposure to environmental tobacco smoke (acute) (chronic); Z79.899 Other long term (current) drug therapy
CPT/HCPCS: 84703

== ENCOUNTER 2019-11-11 16:28 | Outpatient (CLI) | payer OTHER | END 2019-11-11 16:43 | disposition home or self-care (01) | LOC: SLEEP 16:28 | PROVIDERS: ATTEND Otolaryngology Otolaryngology/Facial Plastic Surgery | DX: G47.33 Obstructive sleep apnea (adult) (pediatric) (principal); G47.10 Hypersomnia, unspecified ==

== ENCOUNTER → 2020-06-26 | Outpatient (CLI) | payer BC ==
[2020-06-26 15:59] LABS: BASOPHILS % (AUTO) 1 % (0-10); EOSINOPHILS # (AUTO) 0.1 10^3/uL (0.0-0.3); EOSINOPHILS % (AUTO) 2 % (0-10); HEMATOCRIT 42 % (35-52); HEMOGLOBIN 13.3 g/dL (11.5-16.0); LYMPHOCYTES # (AUTO) 1.2 10^3/uL (1.0-4.0); LYMPHOCYTES % (AUTO) 15 % (12-44); MEAN CORPUSCULAR HEMOGLOBIN 29 pg (25-34); MEAN CORPUSCULAR HGB CONC 32 g/dL (32-36); MEAN CORPUSCULAR VOLUME 90 fL (80-99); MEAN PLATELET VOLUME 11.3 fL (9.0-12.2); MONOCYTES # (AUTO) 0.6 10^3/uL (0.0-1.0); MONOCYTES % (AUTO) 7 % (0-12); NEUTROPHILS # (AUTO) 6.4 10^3/uL (1.8-7.8); NEUTROPHILS % (AUTO) 76 % (42-75); PLATELET COUNT 263 10^3/uL (130-400); WHITE BLOOD COUNT 8.4 10^3/uL (4.3-11.0)
[2020-06-26 16:21] LABS: CHLORIDE 107 MMOL/L (98-107); POTASSIUM 4.2 MMOL/L (3.6-5.0); SODIUM 139 MMOL/L (135-145)
[2020-06-26 16:23] LABS: CALCIUM 8.8 MG/DL (8.5-10.1)
[2020-06-26 16:24] LABS: GLUCOSE 98 MG/DL (70-105); TOTAL PROTEIN 7.6 GM/DL (6.4-8.2)
[2020-06-26 16:25] LABS: CARBON DIOXIDE 24 MMOL/L (21-32)
[2020-06-26 16:26] LABS: BILIRUBIN,TOTAL 0.2 MG/DL (0.1-1.0)
[2020-06-26 16:27] LABS: ALKALINE PHOSPHATASE 86 U/L (40-136); CREATININE SERUM 0.82 MG/DL (0.60-1.30); GFR ESTIMATED > 60
[2020-06-26 16:29] LABS: BUN/CREATININE RATIO 18
[2020-06-26 16:30] LABS: ALANINE AMINOTRANSFERASE 31 U/L (0-55)
== END ==
LOC: LAB 15:24
PROVIDERS: ATTEND Nurse Practitioner Family
DX: R19.7 Diarrhea, unspecified (principal); R19.5 Other fecal abnormalities
CPT/HCPCS: 36415; 80053; 85025; 87015; 87045; 87046; 87324; 87328; 87329; 87449; 87899

== ENCOUNTER → 2020-06-26 | Outpatient (CLI) | payer BC, OTHER ==
--- NOTE | 2020-06-29 08:16 | Diagnostic Imaging Report ---
Indication: Routine screening. Comparison is made prior mammogram 05/18/2018 and 11/09/2015. 2-D and 3-D bilateral screening mammography was performed with CAD. Both breasts are heterogeneously dense, limiting the sensitivity of mammography. There are circumscribed nodular densities in left breast. No spiculated mass or malignant appearing microcalcifications are seen. There are benign calcifications. Axillae are unremarkable. IMPRESSION: BI-RADS Category 2 No mammographic features suspicious for malignancy are identified. ACR BI-RADS Category 2: Benign findings. Result letter will be mailed to the patient. Note: At least 10% of breast cancer is not imaged by mammography. Dictated by: Dictated on workstation # [id number]
== END ==
LOC: RAD 15:30
PROVIDERS: ATTEND Obstetrics & Gynecology
DX: Z12.31 Encounter for screening mammogram for malignant neoplasm of breast (principal)
CPT/HCPCS: 77063; 77067

== ENCOUNTER → 2022-04-19 | Outpatient (CLI) | payer BC, OTHER ==
--- NOTE | 2022-04-19 14:25 | Diagnostic Imaging Report ---
Indication: Routine screening. Comparison is made with prior mammogram 06/26/2020 and 05/18/2018. 2-D and 3-D bilateral screening mammography was performed with CAD. CAD is utilized. The current study was also evaluated with a Computer Aided Detection (CAD) system. Both breasts are heterogeneously dense, limiting the sensitivity of mammography. The asymmetric density in the upper and outer aspect of the right breast appears slightly more prominent on today's study and there is questionable architectural distortion. Additional views of this area is recommended. Nodular densities left breast are stable. There are occasional benign calcifications. No malignant-appearing microcalcifications are seen. IMPRESSION: BI-RADS 0 Right breast density and questionable architectural distortion upper outer right breast at mid depth. Additional views are recommended for further evaluation. ACR BI-RADS Category 0: Incomplete. (Needs additional imaging evaluation). Result letter will be mailed to the patient. Note: At least 10% of breast cancer is not imaged by mammography. Dictated by: Dictated on workstation # [id number]
== END ==
LOC: RAD 08:30
PROVIDERS: ATTEND Nurse Practitioner Women's Health
DX: Z12.31 Encounter for screening mammogram for malignant neoplasm of breast (principal)
CPT/HCPCS: 77063; 77067

== ENCOUNTER → 2022-04-22 | Outpatient (CLI) | payer OTHER ==
--- NOTE | 2022-04-22 14:36 | Diagnostic Imaging Report ---
Indication: Right breast density. Patient presents for additional views. Correlation is made with screening study from 04/19/2022. Unilateral right 2-D and 3-D diagnostic mammography was performed. This includes spot compression CC and ML views as well as conventional 90 degree lateral views. Additional views fail to demonstrate a discrete mass. The density noted in the upper outer right breast appears to represent superimposed tissue. No suspicious calcifications are seen. IMPRESSION: BI-RADS Category 1 Additional views fail to demonstrate a discrete mass. The patient may return to routine annual screening mammography. ACR BI-RADS Category 1: Negative. Result letter will be mailed to the patient. Note: At least 10% of breast cancer is not imaged by mammography. Dictated by: Dictated on workstation # [id number]
== END ==
LOC: RAD 13:45
PROVIDERS: ATTEND Nurse Practitioner Women's Health
DX: R92.2 Inconclusive mammogram (principal)
CPT/HCPCS: 77065; G0279